=== PATIENT | male | born 1990 | race Caucasian/White ===

== ENCOUNTER 2016-09-08 20:46 | Emergency (ER) | payer SELFPAY ==
[2016-09-08 21:43] LABS: BASOPHIL 1.1 % (0-2); EOSINOPHIL 0.6 % (0-5); HCT 44.9 % (42.0-52.0); HGB 16.2 g/dl (13.2-18.0); LYMPHOCYTE 31.2 % (15-48); MCH 29.8 pg (25.0-31.0); MCHC 36.1 g/dL (32.0-36.0); MCV 82.7 fL (78.0-100.0); MONOCYTE 12.4 % (0-12); MPV 9.4 fL (6.0-9.5); NEUTROPHIL 54.7 % (41-80); PLT 243 K/uL (150-400); RBC 5.43 M/uL (4.70-6.00); WBC 6.5 K/uL (4.0-10.5)
[2016-09-08 21:47] LABS: INR 1.01 (0.9-1.2); PROTHROMBIN TIME 12.9 SECONDS (11.7-14.0); PTT 28.6 SECONDS (23.2-31.4)
[2016-09-08 21:56] LABS: ALBUMIN 4.8 g/dL (3.5-5.0); BILIRUBIN - TOTAL 0.4 mg/dL (0.1-1.0); CREATININE 1.1 mg/dL (0.7-1.2); GLOBULIN (CALCULATION) 3.4 g/dL (2.2-4.2); TOTAL PROTEIN 8.2 g/dL (6.4-8.3)
[2016-09-08 22:37] LABS: BILIRUBIN NEGATIVE (NEGATIVE); BLOOD NEGATIVE Ery/uL (NEGATIVE); CLARITY CLEAR (CLEAR); COLOR YELLOW (YELLOW); GLUCOSE (U) NORMAL (NORMAL); KETONE (U) NEGATIVE (NEGATIVE); LEUKOCYTES NEGATIVE Leu/uL (NEGATIVE); NITRITE NEGATIVE (NEGATIVE); PROTEIN TRACE (LOW) mg/dL (NEGATIVE); SPECIFIC GRAVITY 1.025 (1.001-1.030)
[2016-09-08 22:42] LABS: BACTERIA TRACE; MUCOUS LARGE; SQUAMOUS EPITHELIAL CELLS RARE
== END 2016-09-08 23:31 | disposition home or self-care (01) ==
LOC: FER 20:46
PROVIDERS: Emergency Medicine
DX: M54.2 Cervicalgia (principal); M54.6 Pain in thoracic spine; M54.5 Low back pain; M25.551 Pain in right hip; R11.2 Nausea with vomiting, unspecified; R10.31 Right lower quadrant pain; W17.89XA Other fall from one level to another, initial encounter; Y92.69 Other specified industrial and construction area as the place of occurrence of the external cause; Y99.0 Civilian activity done for income or pay
CPT/HCPCS: 36415; 70450; 71010; 72050; 72072; 72110; 72170; 80053; 81001; 85025; 85610; 85730; 93005; J1885

== ENCOUNTER 2020-07-27 22:36 | Emergency (ER) | payer SELFPAY ==
[2020-07-28] MEDS ORDERED: IBUPROFEN800 MG PO (04:27)
== END 2020-07-28 04:57 | disposition home or self-care (01) ==
LOC: FER 22:36
DX: S09.90XA Unspecified injury of head, initial encounter (principal); S46.912A Strain of unspecified muscle, fascia and tendon at shoulder and upper arm level, left arm, initial encounter; W17.89XA Other fall from one level to another, initial encounter
CPT/HCPCS: 70450; 73030